=== PATIENT | female | born 1955 | race Hispanic/Latino ===

== ENCOUNTER 2020-11-24 06:00 | Observation (INO) | payer MEDICARE ==
[2020-11-20 10:03] LABS: BASOPHILS % 0.5 % (0.0-1.0); EOSINOPHILS % 0.5 % (0.0-6.0); HEMATOCRIT 37.5 % (34.2-44.1); HEMOGLOBIN 11.5 g/dL (12.0-16.0); LYMPHOCYTES % 15.2 % (18.0-39.1); MEAN CORPUSCULAR HEMOGLOBIN 24.9 pg (28-32); MEAN CORPUSCULAR HGB CONC 30.7 g/dL (31-35); MEAN CORPUSCULAR VOLUME 81.3 fL (81-99); MONOCYTES # (AUTO) 0.4 (0.2-0.8); MONOCYTES % 5.9 % (4.4-11.3); NEUTROPHILS # (AUTO) 4.8 (2.1-6.9); NEUTROPHILS % 77.4 % (38.7-80.0); PLATELET COUNT 197 x10e3/uL (140-360); RED BLOOD COUNT 4.61 x10e6/uL (3.6-5.1); RED CELL DISTRIBUTION WIDTH 15.6 % (11.7-14.4)
[2020-11-20 10:22] LABS: ANION GAP 14.1 mmol/L (8-16); BLOOD UREA NITROGEN 9 mg/dL (7-26); BUN/CREATININE RATIO 14 (6-25); CALCIUM 8.8 mg/dL (8.4-10.2); CARBON DIOXIDE 25 mmol/L (22-29); CHLORIDE 105 mmol/L (98-107); CREATININE, SERUM 0.66 mg/dL (0.57-1.11); EST GLOMERULAR FILTRATION RATE > 60 ML/MIN (60-); GLUCOSE 257 mg/dL (74-118); POTASSIUM 4.1 mmol/L (3.5-5.1); SODIUM 140 mmol/L (136-145)
[~2020-11-24] VITALS: Ht 152.4 cm; Wt 73.0 kg
[~2020-11-24 06:00] MED LIST: ATORVASTATIN CA10 MG PO; BIOTIN2500 MCG PO; CALCIUM PO; COQ10 PO; FARXIGA5 MG PO; HYDROCODON-ACE1 EA11 PO; IBANDRONATE SO150 MG PO; LEVOTHYROXINE50 MCG PO; MELATONIN3 MG PO; METFORMIN HCL500 MG PO; VITAMIN B-121000 MCG PO; VITAMIN C1000 MG PO; VITAMIN D3 PO; ZESTRIL10 MG PO
[2020-11-24] MEDS ORDERED: GABAPENTIN 300 MG CAP ONE (06:33)
[2020-11-24] MEDS ORDERED: DEXAMETHASONE SOD PHOS 10 MG/1 ML VIAL ONE (06:33)
[2020-11-24] MEDS ORDERED: CELECOXIB 200 MG CAP ONE (06:33)
[2020-11-24] MEDS ORDERED: CEFAZOLIN SOD 1 GM/NS 50ML 100 ML IV ONE (06:34)
[2020-11-24] MEDS ORDERED: ROPIVACAINE 246.25 MG, EPINEPHRINE HCL 1:1000 1ML 0.5 MG, CLONIDINE HCL 0.08 MG, KETORO... INJ ONE ×5 (07:30)
[2020-11-24] MEDS ORDERED: VANCOMYCIN HCL 1,000 MG ONE (07:32)
[2020-11-24] MEDS ORDERED: SODIUM CHLORIDE 0.9% 500ML 500 ML ONE (07:33)
[2020-11-24] MEDS ORDERED: TRANEXAMIC ACID 1,000 MG/10 ML ML ONE (07:33)
[2020-11-24] MEDS ORDERED: ACETAMINOPHEN 650 MG SUPP PR PRN (09:30)
[2020-11-24] MEDS ORDERED: ZOLPIDEM TARTRATE 5 MG TAB PO PRN (09:30)
[2020-11-24] MEDS ORDERED: DIPHENHYDRAMINE HCL INJ 50 MG/ML VIAL IV PRN (09:30)
[2020-11-24] MEDS ORDERED: ONDANSETRON HCL INJ 2MG/ML 2ML 2 MG/ML VIAL IV PRN (09:30)
[2020-11-24] MEDS ORDERED: DOCUSATE SODIUM 100 MG CAP PO PRN (09:30)
[2020-11-24] MEDS ORDERED: EPHEDRINE SULFATE INJ 50 MG/ML VIAL ONE (11:59)
[2020-11-24] MEDS ORDERED: LIDOCAINE HCL 2% LOCAL INJ 5 ML SDV VIAL INJ ONE (11:59)
[2020-11-24] MEDS ORDERED: POVIDONE IODINE 0.05% 0.05 % ML PO ONE (11:59)
[2020-11-24] MEDS ORDERED: PROPOFOL IV EMULSION 10 MG/ML 20 ML VIAL ONE (11:59)
[2020-11-24] MEDS ORDERED: BUPIVACAINE HCL 0.5% INJ 30 ML VIAL INJ ONE (12:31)
[2020-11-24 15:00] VITALS: BP_SYST 113
[2020-11-24 15:50] VITALS: BP 113/72
[2020-11-24] MEDS: KETOROLAC TROMETHAMINE 30 MG/ML VIAL IV PRN ×2 (16:15→22:50)
[2020-11-24] MEDS: CEFAZOLIN SOD 1 GM/NS 50ML 50 ML IV SCH (16:24)
[2020-11-24] MEDS: SODIUM CHLORIDE 0.9% 1000ML 1,000 ML IV SCH (16:25)
[2020-11-24] MEDS: HYDROCODONE/APAP 5MG-325MG TAB PO PRN (16:50)
[2020-11-24] MEDS: CELECOXIB 200 MG CAP PO SCH (17:57)
[2020-11-24] MEDS: ASPIRIN 325 MG TAB PO SCH (17:57)
[2020-11-24] MEDS: HYDROCODONE/APAP 7.5MG-325MG 1 EA TAB PO PRN (18:33)
[2020-11-24 20:00] VITALS: BP_SYST 111; BP_SYST 119; BP_DIAS 59; BP_DIAS 64
[2020-11-24] MEDS ORDERED: ATORVASTATIN 40 MG TAB PO SCH (21:00)
[2020-11-24] MEDS ORDERED: MELATONIN 5 MG TABLET PO SCH (21:00)
[2020-11-24] MEDS: OXYMETAZOLINE HCL 0.05% NAS 1 SPRAY BTL SCH (21:11)
[2020-11-25] VITALS: BP 111/64
[2020-11-25] MEDS: CEFAZOLIN SOD 1 GM/NS 50ML 50 ML IV SCH ×2 (00:03→08:41)
[2020-11-25] MEDS: SODIUM CHLORIDE 0.9% 1000ML 1,000 ML IV SCH (03:51)
[2020-11-25 04:00] VITALS: BP 122/61
[2020-11-25] MEDS: KETOROLAC TROMETHAMINE 30 MG/ML VIAL IV PRN (05:29)
[2020-11-25] MEDS ORDERED: LEVOTHYROXINE SODIUM 50 MCG TAB PO SCH (06:00)
[2020-11-25 06:19] LABS: HEMATOCRIT 24.3 % (34.2-44.1); HEMOGLOBIN 7.7 g/dL (12.0-16.0)
[2020-11-25 07:42] VITALS: BP 113/56
[2020-11-25] MEDS ORDERED: METFORMIN HCL 500 MG TAB PO SCH (08:00)
[2020-11-25 08:06] VITALS: BP 113/56
[2020-11-25] MEDS: CELECOXIB 200 MG CAP PO SCH (08:43)
[2020-11-25] MEDS: ASPIRIN 325 MG TAB PO SCH (08:44)
[2020-11-25] MEDS: OXYMETAZOLINE HCL 0.05% NAS 1 SPRAY BTL SCH (08:50)
[2020-11-25] MEDS: HYDROCODONE/APAP 5MG-325MG TAB PO PRN (08:54)
[2020-11-25] MEDS ORDERED: LISINOPRIL 20 MG TAB PO SCH (09:00)
[2020-11-25] MEDS ORDERED: CYANOCOBALAMIN 1,000 MCG TAB PO SCH (09:00)
[2020-11-25] MEDS ORDERED: CALCIUM 1200 MG PO SCH (09:00)
[2020-11-25] MEDS ORDERED: CALCIUM CARBONATE 500 MG CHEWABLE TABS PO SCH (09:00)
[2020-11-25] MEDS ORDERED: ASCORBIC ACID 500 MG TAB PO SCH (09:00)
[2020-11-25] MEDS ORDERED: CHOLECALCIFEROL 1,000 UNIT TAB PO SCH (09:00)
[2020-11-25] MEDS ORDERED: (Dapagliflozin Propanediol (Farxiga) 5 MG) PO SCH (09:00)
[2020-11-25] MEDS ORDERED: INTLU PO SCH (09:00)
[2020-11-25] MEDS ORDERED: ACETAMINOPHEN 1000 MG/100 ML IV PRN (09:30)
[2020-11-25] MEDS ORDERED: ONDANSETRON HCL 4 MG ORAL DISINTEGRATING TAB PO PRN (09:45)
[2020-11-25 11:47] VITALS: BP 125/63
[2020-11-25] MEDS: HYDROCODONE/APAP 7.5MG-325MG 1 EA TAB PO PRN (14:36)
[2020-12-22] MEDS ORDERED: IBANDRONATE SODIUM 150 MG PO SCH (06:30)
== END 2020-11-25 15:24 | disposition home or self-care (01) ==
LOC: OR 06:00 → PACU V 09:26 → MED/SURG 14:52
PROVIDERS: ADMIT Specialist; ATTEND Specialist
DX: M16.11 Unilateral primary osteoarthritis, right hip (principal); E11.9 Type 2 diabetes mellitus without complications; I10 Essential (primary) hypertension; R42 Dizziness and giddiness; D64.9 Anemia, unspecified; E78.5 Hyperlipidemia, unspecified
CPT/HCPCS: 27130; 36415 ×3; 71046; 72170; 80048; 82948 ×2; 85014; 85018; 85025; 86850; 86900; 86920; 97110; 97116 ×2; 97162; 97530 ×2; G0378 ×2; J0171; J0690 ×2; J1100; J1885 ×2; J2001; J2704; J2795; J3370; J7030 ×2; J7040

== ENCOUNTER 2021-06-14 10:17 | Emergency (ER) | payer BC, MEDICARE ==
[~2021-06-14] VITALS: Ht 154.9 cm; Wt 70.8 kg
[2021-06-14] MEDS ORDERED: PROAIR HFA INH8.5 GM IH (10:54)
[2021-06-14] MEDS ORDERED: GUAIFEN-CODEINE5 ML PO (10:54)
== END 2021-06-14 11:27 | disposition home or self-care (01) ==
LOC: FSED 10:25
DX: J06.9 Acute upper respiratory infection, unspecified (principal); R05.9 Cough, unspecified; I10 Essential (primary) hypertension; E11.9 Type 2 diabetes mellitus without complications; E03.9 Hypothyroidism, unspecified
CPT/HCPCS: 99283

== ENCOUNTER 2021-07-22 22:47 | Emergency (ER) | payer BC, OTHER ==
[~2021-07-22] VITALS: Ht 154.9 cm; Wt 70.8 kg
[~2021-07-22 22:47] MED LIST changes: +GUAIFEN-CODEINE5 ML PO; +PROAIR HFA INH8.5 GM IH
== END 2021-07-23 01:16 | disposition home or self-care (01) ==
LOC: FSED 22:53
DX: R00.2 Palpitations (principal); E11.65 Type 2 diabetes mellitus with hyperglycemia; I10 Essential (primary) hypertension; D64.9 Anemia, unspecified; E03.9 Hypothyroidism, unspecified
CPT/HCPCS: 80053; 82553; 84484; 85025; 93005; 99283

== ENCOUNTER 2021-09-23 11:29 | Emergency (ER) | payer BC, OTHER ==
[~2021-09-23] VITALS: Ht 160 cm; Wt 70.3 kg
[2021-09-23] MEDS ORDERED: MECLIZINE HCL12.5 MG PO (14:19)
== END 2021-09-23 14:42 | disposition home or self-care (01) ==
LOC: FSED 12:34
DX: H93.13 Tinnitus, bilateral (principal); H69.83 Other specified disorders of Eustachian tube, bilateral; E11.9 Type 2 diabetes mellitus without complications; I10 Essential (primary) hypertension; E78.5 Hyperlipidemia, unspecified; E03.9 Hypothyroidism, unspecified; M81.8 Other osteoporosis without current pathological fracture
CPT/HCPCS: 99282

== ENCOUNTER → 2023-05-12 | Outpatient (REF) | payer OTHER ==
[~2023-05-12] MED LIST changes: +MECLIZINE HCL12.5 MG PO
== END ==
LOC: NM 07:28
PROVIDERS: ATTEND Physician Assistant Medical
DX: R14.0 Abdominal distension (gaseous) (principal); R12 Heartburn
CPT/HCPCS: 78264; A9541